=== PATIENT | female | born 1960 | race African-American/Black ===

== ENCOUNTER 2024-03-27 15:41 | Emergency (ER) | payer OTHER ==
[~2024-03-27] VITALS: Ht 154.9 cm; Wt 86.4 kg
[2024-03-27] MEDS ORDERED: GLUCOTROL XL10 MG PO (16:13)
[2024-03-27] MEDS ORDERED: NAPROSYN500 MG PO (16:13)
[2024-03-27] MEDS ORDERED: MOUNJARO10 MG/0.5 (16:13)
[2024-03-27] MEDS ORDERED: HYZAAR 50-12.51 EACH (16:13)
[2024-03-27] MEDS ORDERED: BIOTIN PLUS 5,1 EACH (16:13)
[2024-03-27] MEDS ORDERED: VITAMIN D250 MCG (16:13)
[2024-03-27] MEDS ORDERED: IBUPROFEN800 MG PO (16:13)
[2024-03-27 20:18] VITALS: PULSE 71; RESP 18; TEMP 98
[2024-03-27 21:15] VITALS: BP 151/74; PULSE 78; RESP 18; TEMP 98; O2SAT 98
== END 2024-03-27 21:19 | disposition other institution (70) ==
LOC: FSED 15:45
DX: R41.82 Altered mental status, unspecified (principal); R46.89 Other symptoms and signs involving appearance and behavior; E11.649 Type 2 diabetes mellitus with hypoglycemia without coma; I10 Essential (primary) hypertension
CPT/HCPCS: 36415; 70450; 80053; 80307; 81003; 82948; 85025; 99284